=== PATIENT | female | born 1980 | race Caucasian/White ===

== ENCOUNTER 2018-09-18 14:45 | Outpatient (CLI) | payer BC ==
--- NOTE | 2018-09-18 15:17 | RAD ---
EXAM: Chest PA and lateral: HISTORY: Cough. COMPARISON: 10/20/2014 FINDINGS: Heart: Normal cardiac silhouette Aorta: Unremarkable Pulmonary vessels: Normal Costophrenic angles: Costophrenic angles are clear. Lungs: No consolidation or masses. Pneumothorax: No pneumothorax Osseous structures: No osseous abnormalities IMPRESSION: No acute cardiopulmonary process.
== END 2018-09-18 14:46 | disposition home or self-care (01) ==
LOC: SCSRAD 14:45
PROVIDERS: ATTEND Nurse Practitioner Family
DX: R05 Cough (principal)
CPT/HCPCS: 71046

== ENCOUNTER 2018-12-03 12:30 | Emergency (ER) | payer BC ==
[2018-12-03 13:26] LABS: #Basophils 0.1 thou/uL (0.0-0.2); #Eosinphils 0.2 thou/uL (0.0-0.7); #Lymphocytes 1.8 thou/uL (1.20-3.40); #Monocytes 0.6 thou/uL (0.11-0.59); #Neutrophils 4.6 thou/uL (1.40-6.50); %Basophils 1.1 % (0.0-1.0); %Eosinophils 2.5 % (0.0-10.0); %Lymphocytes 24.2 % (21.0-51.0); %Monocytes 8.5 % (0.0-10.0); %Neutrophils 63.6 % (42.0-75.0); Hemoglobin 13.6 g/dL (12.0-16.0); Mean Corpuscular HGB CONC 33.6 g/dL (32.0-36.0); Mean Corpuscular Hemoglobin 30.9 pg (27.0-31.0); Mean Corpuscular Volume 91.9 fL (78.0-98.0); Mean Platelet Volume 7.2 fL (7.4-10.4); Platelet Count 337 thou/uL (130-400); Red Blood Cell (RBC) Count 4.39 mill/uL (4.20-5.40); White Blood Cell (WBC) Count 7.3 thou/uL (4.8-10.8)
[2018-12-03 13:33] LABS: BHCG - Serum Negative (NEGATIVE)
[2018-12-03 13:34] LABS: Pregs Control Background? CLEAR/WHITE (CLR/WHITE); Pregs Control Bar Appear? YES (CONTROL BAR)
[2018-12-03 13:39] LABS: ALT (SGPT) 29 U/L (8-55); AST (SGOT) 27 U/L (5-34); Albumin 4.4 g/dL (3.5-5.0); Alkaline Phosphatase 91 U/L (40-110); Anion Gap 14 mmol/L (10-20); BUN (Urea Nitrogen) 7 mg/dL (7.0-18.7); Bilirubin, Total 0.2 mg/dL (0.2-1.2); Calc. Creatinine Clearance 0 mL/min (70-130); Calcium 9.2 mg/dL (7.8-10.44); Carbon Dioxide 25 mmol/L (22-29); Chloride 107 mmol/L (98-107); Estimated GFR-MDRD Greater than 90; Globulin 2.6 g/dL (2.4-3.5); Glucose 94 mg/dL (70-105); Potassium 3.8 mmol/L (3.5-5.1); Sodium 142 mmol/L (136-145)
[2018-12-03 13:50] LABS: Bilirubin Negative (Negative); Blood, Urine Negative (Negative); Clarity Cloudy (Clear); Glucose, Urine (Dipstick) Negative (Negative); Leukocyte Negative (Negative); Nitrite Negative (Negative); Protein, Urine (Dipstick) Negative (Neg-Trace); Urobilinogen 0.2 mg/dL (Less than 2)
[2018-12-03 13:57] LABS: Thyroid Stimulating Hormone 0.9214 uIU/mL (0.35-4.94)
[2018-12-03 13:58] LABS: Amphetamine Detected (NotDetected)
[2018-12-03 13:59] LABS: Barbiturates Screen Not Detected (NotDetected); Benzodiazepine Screen Not Detected (NotDetected); Cocaine Metabolite Screen Not Detected (NotDetected); Medtox Control Line Valid? VALID (VALID); Methadone Not Detected (NotDetected); Methamphetamine Not Detected (NotDetected); Opiate Screen Not Detected (NotDetected); Oxycodone Screen Not Detected (NotDetected); Phencyclidine (PCP) Not Detected (NotDetected); THC/Cannabinoid Screen Not Detected (NotDetected); Tricyclic Screen Not Detected (NotDetected)
--- NOTE | 2018-12-03 14:09 | RAD ---
XR Chest Pa Lat STANDARD HISTORY: Syncope COMPARISON: 09/18/2018 FINDINGS: The heart size is normal. The lungs are well expanded without focal areas of consolidation, pneumothorax or pleural effusions. IMPRESSION: No radiographic evidence of acute cardiopulmonary process.
--- NOTE | 2018-12-03 14:16 | RAD ---
3 VIEWS LUMBAR SPINE: Date: 12/02/18 HISTORY: Fall, pain. FINDINGS: Five lumbar-type vertebral bodies are present with intact pedicles on frontal imaging. Lateral exam d emonstrates normal vertebral body height and alignment. No acute osseous abnormality. IMPRESSION: No acute findings. POS: [facility]
--- NOTE | 2018-12-03 14:18 | CT ---
CT CERVICAL SPINE WITHOUT CONTRAST: 12/03/2018 HISTORY: Cervical spine pain. COMPARISON: None. TECHNIQUE: Axial CT imaging at 2 mm intervals from the skull base through the lung apices without contrast. Bev nal and sagittal reformatted imaging obtained. FINDINGS: Evaluation for central canal and/or neural foraminal stenosis is limited on routine CT. Imaged lung a pices are unremarkable. The craniocervical junction, the atlantoaxial interspace, the occipital condyles, the dens, the C1 ri ng and the C1-2 articulation appear unremarkable. Cervical vertebral body height and alignment appear normal with no prevertebral soft tissue swelling, fracture or evidence of dislocation. IMPRESSION: No acute findings. POS: [facility]
== END 2018-12-03 14:30 | disposition home or self-care (01) ==
LOC: SCSER 12:30
DX: S16.1XXA Strain of muscle, fascia and tendon at neck level, initial encounter (principal); S40.022A Contusion of left upper arm, initial encounter; M54.5 Low back pain; R55 Syncope and collapse; R53.83 Other fatigue; E78.00 Pure hypercholesterolemia, unspecified; F41.9 Anxiety disorder, unspecified; Z87.891 Personal history of nicotine dependence; Z79.899 Other long term (current) drug therapy; W18.30XA Fall on same level, unspecified, initial encounter
CPT/HCPCS: 36415; 71046; 72100; 72125; 80053; 80306; 81003; 84443; 84484; 84703; 85025; 93005